=== PATIENT | male | born 1995 | race Two or more races ===

== ENCOUNTER 2017-12-04 11:57 | Emergency (ER) | payer MEDICAID ==
[~2017-12-04] VITALS: Ht 165.1 cm; Wt 68.2 kg
[2017-12-04 14:44] LABS: INFLUENZA TYPE A NEGATIVE FOR TYPE A (NEGATIVE); INFLUENZA TYPE B NEGATIVE FOR TYPE B (NEGATIVE)
[2017-12-04] MEDS ORDERED: SODIUM CHLORIDE 0.9% 1,000 ML IV ONE ×2 (17:00→18:00)
[2017-12-04] MEDS ORDERED: ACETAMINOPHEN 500 MG TABLET PO ONE (17:15)
[2017-12-04 17:47] VITALS: BP 144/58
[2017-12-04] MEDS ORDERED: IBUPROFEN 600 MG TABLET PO ONE (18:00)
== END 2017-12-04 19:10 | disposition home or self-care (01) ==
LOC: EMS 11:58
DX: J40 Bronchitis, not specified as acute or chronic (principal); R03.0 Elevated blood-pressure reading, without diagnosis of hypertension; M79.1 Myalgia; F12.90 Cannabis use, unspecified, uncomplicated; Z87.891 Personal history of nicotine dependence
CPT/HCPCS: 87804; 96360; 96361; 99285; J7030